=== PATIENT | female | born 2005 | race Caucasian/White ===

== ENCOUNTER 2024-03-12 14:50 | Emergency (ER) | payer BC, SELFPAY ==
[2024-03-12 14:55] VITALS: BP 123/82
[2024-03-12] MEDS: TORADOL 60 MG IM (17:34)
[2024-03-12 17:38] VITALS: BP 95/69
--- NOTE | 2024-03-12 18:44 | ED.GENMED ---
History of Present Illness
General
Chief Complaint: Musculo-Skeletal Complaint
Source: patient and family
Exam Limitations: none
Time Seen by Provider: 03/12/24 16:06
History of Present Illness
History of Present Illness:
18-year-old female who states that she was riding her horse at a show when it started to try it and she fell off the side after trying to pull on the rains. Patient states she landed on her left hip. The patient is worried that she has a hip
dislocation. Patient states that she was able to walk off the course. But once she is down and in a car was difficult her for her to get up again. No numbness or tingling. Pain is mostly at the left greater trochanter and toward her left groin.
Denies head injury. Was helmeted. No neck or back pain
Past History
Past History
ED Past Medical History: Other (IBS)
Phy Exam
Physical Exam
Physical Exam:
CONSTITUTIONAL Patient alert and oriented to person, place and time. Well-appearing. Vital signs reviewed.
HEAD atraumatic, normocephalic.
EYES eyelids normal to inspection, Pupils equally round and reactive to light, Extraocular muscles intact, Conjunctiva normal, Sclera normal.
NECK normal range of motion, Trachea midline, no jugular venous distention. No midline tenderness
RESPIRATORY CHEST No respiratory distress noted, Chest expansion equal
BACK normal inspection, no obvious deformities, no midline tenderness
UPPER EXTREMITY range of motion normal, Motor strength normal, no cyanosis, no edema.
LOWER EXTREMITY Motor strength normal, no cyanosis, no edema. Able to slowly flex at the hip and knee. Mild pain with internal and external rotation but is able to do it. Tenderness of the left greater trochanter. Patient states that she is
unable to stand up due to pain
NEURO Speech normal, No focal motor deficits, Mateo coma scale 15, Memory normal, Cranial Nerves intact to screening exam.
SKIN skin warm, dry, and normal in color.
PSYCHIATRIC patient oriented to person place and time, Normal affect.
Course
Orders/Labs/Results
Orders:
Orders
03/12/24 15:00
Hip, Left 2-3 Views [CR Hip - LT w/wo Pel 2-3 Vw*] Urgent
Comment:
Reason For Exam: fell off horse, pain
Include a pelvis x-ray?: Yes
03/12/24 16:49
CT Pelvis W/o Iv Contrast Urgent
Comment:
Reason For Exam: fall of horse, L hip pain, cannot walk
03/12/24 17:08
Ketorolac [Toradol] 60 mg IM NOW STA
Vital Signs
Initial and Last Documented VS:
Initial Vital Signs
Temp Pulse Resp BP Pulse Ox
98.1 F 107 18 123/82 96
03/12/24 14:55 03/12/24 14:55 03/12/24 14:55 03/12/24 14:55 03/12/24 14:55
Last Documented Vital Signs
Temp Pulse Resp BP Pulse Ox
98.1 F 80 20 95/69 99
03/12/24 14:55 03/12/24 17:38 03/12/24 17:38 03/12/24 17:38 03/12/24 17:38
MDM/Problems Addressed
Differential Diagnosis Includes:
Hip fracture, hip dislocation, bone contusion
MDM/Problems Addressed:
Hip injury
*Radiology
Radiology exam reviewed: all reviewed NAD by ED Provider
*Pulse Oximetry
Patient hypoxic: no
*Critical Care Note
Total Time (30-74mins, 75-104mins- exclusive of procedures): Not Applicable
Data Reviewed
Source: patient and family
Further Testing Considered But Not Given:
Considered head imaging but patient denies head injury and was helmeted
Patient Management
Escalation/DeEscalation of care consider admission/obs:
Imaging negative. Patient's pain is better. Okay for discharge and outpatient follow-up. If pain persist, outpatient follow-up with orthopedics for advanced imaging
ED Attending Note
-
Portions of this chart may have been created with voice recognition software.� Occasional wrong word or��sound alike� substitutions may have occurred due to the inherent limitations of voice recognition software.
Discharge Plan
Departure
Patient Disposition: Home (Routine Discharge)
Date of Disposition: 03/12/24
Time of Disposition: 19:35
Patient with high blood pressure during this ER visit?: No
Discharge Problem:
Hip injury
Instructions: How to Use Crutches
Referrals:
Staci James MD [Family Provider] -
Gonzales Mason MD [Active] -
Activity Restrictions/Additional Instructions:
Hip injury
Please rest, ice and use ibuprofen every 6 hours for pain control. Please see orthopedics next 3 to 5 days for follow-up and reevaluation. If pain persist, further imaging may be necessary.
Interventions
Interventions:
*Risk Screen - Suicide Last Done: 03/12/24 14:55
*General Assessment Last Done: 03/12/24 14:55
*Neglect/Abuse Screening Last Done: 03/12/24 15:45
ED-Musculoskeletal Assessment Last Done: 03/12/24 15:45
Discharge Date and Time
Print Language: SRI LANKAN
[2024-03-12 19:44] VITALS: BP 130/75
[2024-03-12 19:46] VITALS: BP 130/75
== END 2024-03-12 19:46 | disposition home or self-care (01) ==
LOC: EMR 14:50
PROVIDERS: EMERGENCY PHYSICIAN Emergency Medicine; FAMILY PHYSICIAN Pediatrics
DX: S79.912A Unspecified injury of left hip, initial encounter (principal); M25.552 Pain in left hip; R26.2 Difficulty in walking, not elsewhere classified; V80.010A Animal-rider injured by fall from or being thrown from horse in noncollision accident, initial encounter; Y93.52 Activity, horseback riding; K58.9 Irritable bowel syndrome, unspecified; Z88.1 Allergy status to other antibiotic agents; Z88.0 Allergy status to penicillin
CPT/HCPCS: 99284; 96372; 72192; 73502